=== PATIENT | female | born 1965 | race Hispanic/Latino ===

== ENCOUNTER 2024-05-07 15:31 | Emergency (ER) | payer BC ==
[~2024-05-07] VITALS: Ht 152.4 cm; Wt 78.5 kg
[2024-05-07 15:59] LABS: BASOPHILS # (AUTO) 0.03 K/uL (0.00-0.20); BASOPHILS % (AUTO) 0.8 % (0.0-5.0); EOSINOPHILS # (AUTO) 0.01 K/uL (0.00-0.70); EOSINOPHILS % (AUTO) 0.3 % (0.0-8.0); HEMATOCRIT 41.3 % (36-48); IMMATURE GRANULOCYTE ABSOLUTE 0.01 K/uL (0-1); LYMPHOCYTES # (AUTO) 0.7 K/uL (1.0-4.8); LYMPHOCYTES % (AUTO) 18.5 % (21.0-51.0); MEAN CORPUSCULAR HGB CONC 33.9 g/dL (32.0-36.0); MEAN CORPUSCULAR VOLUME 85.5 fL (79-99); MONOCYTES # (AUTO) 0.2 K/uL (0.1-1.0); NEUTROPHILS # (AUTO) 2.7 K/uL (1.8-7.7); NEUTROPHILS % (AUTO) 74.1 % (40.0-77.0); PLATELET COUNT (AUTO) 131 K/uL (130-400); RED BLOOD CELL COUNT(AUTO) 4.83 MIL/uL (4.00-5.50); WHITE BLOOD COUNT (AUTO) 3.7 K/uL (4.8-10.8)
[2024-05-07 16:11] LABS: CREATININE 1.1 mg/dL (0.5-1.0); POTASSIUM 3.3 mmol/L (3.5-5.1)
[2024-05-07 16:27] VITALS: TEMP 102
[2024-05-07] MEDS: IBUPROFEN 600 MG TABLET PO ONE (16:27)
[2024-05-07] MEDS: acetaMINOPHEN 500 MG TABLET PO ONE (16:27)
[2024-05-07 16:33] LABS: SARS-CoV-2, RNA, NAAT NEGATIVE SARS CoV-2 (NEGATIVE)
[2024-05-07 16:37] LABS: INFLUENZA TYPE A Negative For Type A (NEGATIVE); INFLUENZA TYPE B Negative For Type B (NEGATIVE)
[2024-05-07 16:39] LABS: APPEARANCE,URINE CLOUDY (CLEAR); BILIRUBIN,URINE NEGATIVE (NEGATIVE); COLOR,URINE YELLOW (YELLOW); GLUCOSE, URINE (UA) NEGATIVE (NEGATIVE); KETONES,URINE NEGATIVE (NEGATIVE); LEUKOCYTE ESTERASE ,URINE 500 Leu/uL (NEGATIVE); NITRATE,URINE NEGATIVE (NEGATIVE); OCCULT BLOOD,URINE MODERATE (NEGATIVE); PH,URINE 5.5 (5.0-8.0); PROTEIN,URINE 20 mg/dL (NEGATIVE); UROBILINOGEN,URINE 0.2 mg/dL (0.2-1.0)
[2024-05-07 17:00] LABS: ADD UA MICROSCOPIC YES
[2024-05-07 17:03] LABS: BACTERIA,URINE RARE /HPF (None Seen); MUCUS,URINE RARE LPF (None Seen); NON-SQUAMOUS EPITHELIAL CELL 2 /HPF (0-2); OTHER CASTS, URINE 1 /LPF (None Seen); SQUAMOUS EPITHELIAL CELL,UR FEW /HPF (0-2); WBC,URINE 26-50 /HPF (0-1)
[2024-05-07] MEDS: 0.9%NACL 1000ML 1,000 ML IV ONE (18:14)
[2024-05-07] MEDS: cefTRIAXone 1G VIAL IVPB ONE (18:14)
[2024-05-07] MEDS ORDERED: IBUP-2076 PO (18:42)
[2024-05-07] MEDS ORDERED: ACET-66 PO (18:42)
[2024-05-07] MEDS ORDERED: CEPH500B PO (18:42)
[2024-05-07 19:23] VITALS: BP 117/59; PULSE 61; RESP 18; TEMP 98.3; O2SAT 96
== END 2024-05-07 19:26 | disposition home or self-care (01) ==
LOC: EDH 15:31
DX: N39.0 Urinary tract infection, site not specified (principal); Z20.822 Contact with and (suspected) exposure to COVID-19; R42 Dizziness and giddiness; I10 Essential (primary) hypertension; Z79.899 Other long term (current) drug therapy; Z79.2 Long term (current) use of antibiotics; Z90.49 Acquired absence of other specified parts of digestive tract
CPT/HCPCS: 99284; 96374; 87635; 80048; 85025; 87040; 87086 ×2; 87186; 87804 ×2; 83605; 81001; 36415; J7030; J0696